=== PATIENT | female | born 1975 | race American Indian/Alaskan Native ===

== ENCOUNTER 2021-12-23 16:28 | Emergency (ER) | payer BC ==
[2021-12-23 17:02] VITALS: BP 151/78
[2021-12-23 17:22] LABS: Basophils % (Auto) 0.5 % (0.0-1.8); Eosinophils % (Auto) 0.6 % (0.0-4.3); Hematocrit 36.7 % (30.3-42.9); Hemoglobin 11.6 gm/dl (10.1-14.3); Lymphocytes # (Auto) 2.2 K/mm3 (1.2-5.4); Lymphocytes % (Auto) 41.4 % (13.4-35.0); Mean Corpuscular HGB Conc 32 % (30-34); Mean Corpuscular Volume 82 fl (79-97); Monocytes # (Auto) 0.6 K/mm3 (0.0-0.8); Monocytes % (Auto) 11.4 % (0.0-7.3); Platelet Count 225 K/mm3 (140-440); Red Blood Count 4.48 M/mm3 (3.65-5.03); Red Cell Distribution Width 16.2 % (13.2-15.2)
[2021-12-23 17:55] LABS: Blood Urea Nitrogen 5 mg/dL (7-17); Calcium 8.9 mg/dL (8.4-10.2); Hemolysis Index 9
[2021-12-23 18:04] LABS: BUN/Creatinine Ratio 7
--- NOTE | 2021-12-23 18:06 | XRay Report ---
LEFT TIBIA-FIBULA 2 VIEW(S) INDICATION / CLINICAL INFORMATION: fall pain swelling LLE COMPARISON: None available. FINDINGS: BONES / JOINT(S): No acute fracture or subluxation. No significant arthritis. SOFT TISSUES: On the proximal lateral view, there is a thin linear 6 mm density projecting within the pretibial subcutaneous fat. There is anterior soft tissue swelling. ADDITIONAL FINDINGS: None. IMPRESSION: 1. No acute skeletal abnormality. 2. Thin linear density projecting within the edematous prepatellar soft tissues in the proximal forel eg on the lateral view concerning for foreign body. Signer Name: Pablo Nicole MD Signed: 12/23/2021 6:01 PM Workstation Name: [email or web address]
[2021-12-23] MEDS ORDERED: DOXYCYCLINE 100 MG CAP PO ONE (22:22)
[2021-12-23] MEDS ORDERED: IBUPROFEN 600 MG TAB PO ONE (22:22)
[2021-12-23] MEDS ORDERED: ONDANSETRON 4 MG ODT TAB PO ONE (22:22)
--- NOTE | 2021-12-23 22:27 | Emergency Department Report ---
ED Lower Extremity HPI - General Chief Complaint: Fall Stated Complaint: INFECTION Source: patient Mode of arrival: Ambulatory Limitations: No Limitations - History of Present Illness Initial Comments: Patient is a 45-year-old -[place] female with a history of morbid obes ity, hypertension, hyperlipidemia, asthma who presents to the ED with complaint of persistent left lower leg pain with mild swelling and erythematous maculopapular rash and suffering a fall injury at home 3 days ago. Patient states that she slipped in the bathtub and fell 3 days ago and hit her head and also scratched her left lower leg. Patient states that she was initially evaluated at another hospital emergency, [facility] and was subsequently discharged home. Patient states that in the last 2 days left lower leg pain and swelling has been persistent with worsening erythematous rash around the left lower leg abrasion. Patient states that she also tested positive for COVID-19 viral infection 3 days ago. Patient denies fever, chills, nausea and vomiting, dizziness, syncope, seizures, neck pain, chest pain, shortness of breath, low back pain, numbness and tingling or weakness of lower extremities bilaterally. MD Complaint: leg injury (left lower leg abrasions, swelling and mild erythematous rash) -: days(s) (3) Injury: Leg: Left (left lower leg abrasion and mild erythema) Type of Injury: other (abrasion) Severity: moderate Severity scale (0 -10): 6 Improves With: nothing Worsens With: weight bearing, movement, palpation Context: fall Associated Symptoms: swelling, able to partially bear weight. denies: snap/pop sensation, numbness, tingling, unable to bear weight, ambulatory - Related Data Previous Rx's Medication Instructions Recorded Last Taken Type Cyclobenzaprine [Flexeril] 10 mg PO TID PRN #14 tablet 10/13/13 Unknown Rx HYDROcodone/APAP 5-325 [Council 1 each PO Q6HR PRN #14 tablet 10/13/13 Unknown Rx 5-325 mg TAB] Ibuprofen [Motrin] 800 mg PO Q8H PRN #20 tablet 10/13/13 Unknown Rx Doxycycline Monohydrate 100 mg PO Q12H #20 cap 12/23/21 Unknown Rx [Doxycycline Monohydrate CAP] Ibuprofen [Motrin] 800 mg PO Q8HR PRN #30 tablet 12/23/21 Unknown Rx Allergies Allergy/AdvReac Type Severity Reaction Status Date / Time Penicillins Allergy Rash Verified 12/23/21 17:02 Sulfa (Sulfonamide Allergy Rash Verified 12/23/21 17:02 Antibiotics) ED Review of Systems ROS: Stated complaint: INFECTION Other details as noted in HPI Constitutional: denies: chills, fever Eyes: denies: eye pain, eye discharge, vision change ENT: denies: ear pain, throat pain Respiratory: denies: cough, shortness of breath, wheezing Cardiovascular: denies: chest pain, palpitations Endocrine: no symptoms reported Gastrointestinal: denies: abdominal pain, nausea, diarrhea Genitourinary: denies: urgency, dysuria, discharge Musculoskeletal: arthralgia (left lower leg abrasion and mild erythematous rash). denies: back pain, joint swelling Skin: rash (Mild erythematous rash on the left lower leg with mild swelling). denies: lesions Neurological: denies: headache, weakness, paresthesias Psychiatric: denies: anxiety, depression Hematological/Lymphatic: denies: easy bleeding, easy bruising ED Past Medical Hx - Past Medical History Hx Asthma: Yes - Social History Smoking Status: Never Smoker Substance Use Type: None - Medications Home Medications: Home Medications Medication Instructions Recorded Confirmed Last Taken Type Cyclobenzaprine [Flexeril] 10 mg PO TID PRN #14 tablet 10/13/13 Unknown Rx HYDROcodone/APAP 5-325 [Council 1 each PO Q6HR PRN #14 tablet 10/13/13 Unknown Rx 5-325 mg TAB] Ibuprofen [Motrin] 800 mg PO Q8H PRN #20 tablet 10/13/13 Unknown Rx Doxycycline Monohydrate 100 mg PO Q12H #20 cap 12/23/21 Unknown Rx [Doxycycline Monohydrate CAP] Ibuprofen [Motrin] 800 mg PO Q8HR PRN #30 tablet 12/23/21 Unknown Rx ED Physical Exam - General Limitations: No Limitations General appearance: alert, in no apparent distress - Head Head exam: Present: atraumatic, normocephalic, normal inspection - Eye Eye exam: Present: normal appearance, PERRL, EOMI Pupils: Present: normal accommodation - ENT ENT exam: Present: normal exam, normal orophraynx, mucous membranes moist, TM's normal bilaterally, normal external ear exam - Neck Neck exam: Present: normal inspection, full ROM. Absent: tenderness - Respiratory Respiratory exam: Present: normal lung sounds bilaterally. Absent: respiratory distress, wheezes, rales, stridor, chest wall tenderness, accessory muscle use, prolonged expiratory - Cardiovascular Cardiovascular Exam: Present: regular rate, normal rhythm, normal heart sounds. Absent: systolic murmur, diastolic murmur, rubs, gallop - GI/Abdominal GI/Abdominal exam: Present: soft, normal bowel sounds. Absent: tenderness, gu arding, rebound, hyperactive bowel sounds, hypoactive bowel sounds, organomegaly - Extremities Exam Extremities exam: Present: normal inspection, full ROM, tenderness (Palpable left lower leg tenderness with mild swelling and mild erythematous maculopapular rashes), normal capillary refill. Absent: pedal edema, joint swelling, calf tenderness - Back Exam Back exam: Present: normal inspection, full ROM. Absent: tenderness, CVA tenderness (R), CVA tenderness (L), muscle spasm, paraspinal tenderness, vertebral tenderness - Neurological Exam Neurological exam: Present: alert, oriented X3, CN II-XII intact, normal gait, reflexes normal - Psychiatric Psychiatric exam: Present: normal affect, normal mood - Skin Skin exam: Present: warm, dry, intact, rash (Mild erythematous maculopapular rash on left lower leg with mild swelling and localized tenderness), erythema. Absent: normal color ED Course Vital Signs 12/23/21 16:50 Temperature 98 F Pulse Rate 79 Respiratory 18 Rate Blood Pressure 151/78 [Left] O2 Sat by Pulse 99 Oximetry ED Lower Extremity MDM - Lab Data Result diagrams: 12/23/21 17:10 12/23/21 17:10 - Medical Decision Making This is a 45-year-old -[place] female with a history of morbid obesity, hypertension, hyperlipidemia, asthma who presents to the ED with complaint of persistent left lower leg pain with mild swelling and erythematous maculopapular rash and suffering a fall injury at home 3 days ago. Patient states that she slipped in the bathtub and fell 3 days ago and hit her head and also scratched her left lower leg. Patient states that she was initially evaluated at another hospital emergency, [facility] and was subsequently discharged home. Patient states that in the last 2 days left lower leg pain and swelling has been persistent with worsening erythematous rash around the left lower leg abrasion. Patient states that she also tested positive for COVID-19 viral infection 3 days ago. In the ED, patient is alert and oriented x3 and is not in any distress. Lab test results were reviewed and are all nonactionable. Patient was treated in the ED initially with oral antibiotics and pain medication and was discharged home on antibiotics and advised to follow-up with her primary care physician in 7 to 10 days for reevaluation or return to the ED immediately if symptoms get worse. - Differential Diagnosis Cellulitis; abrasion; leg contusion; Critical care attestation.: If time is entered above; I have spent that time in minutes in the direct care of this critically ill patient, excluding procedure time. ED Disposition Clinical Impression: Cellulitis of left lower extremity without foot, Contusion of left lower leg, initial encounter Abrasion of left lower extremity Qualifiers: Encounter type: initial encounter Qualified Code(s): S80.812A - Abrasion, left lower leg, initial encounter Disposition: HOME / SELF CARE / HOMELESS Is pt being admited?: No Does the pt Need Aspirin: No Condition: Stable Instructions: Contusion, [id number], Cellulitis, Adult, [id number], Abrasion, [id number] Additional Instructions: All lab test results were reviewed and are all nonactionable. Therefore take medications with food, drink plenty of fluids and follow-up with your primary care physician in 7 to 10 days for reevaluation. Return to the ED immediately if symptoms get worse. Prescriptions: Doxycycline Monohydrate [Doxycycline Monohydrate CAP] 100 mg PO Q12H #20 cap Ibuprofen [Motrin] 800 mg PO Q8HR PRN #30 tablet PRN Reason: Pain , Severe (7-10) Referrals: PHIL KENNEY MD [Primary Care Provider] - 3-5 Days Forms: Work/School Release Form(ED) Time of Disposition: 22:29 Print Language: INDONESIAN
== END 2021-12-23 22:58 | disposition home or self-care (01) ==
LOC: ED 16:28
DX: S80.12XA Contusion of left lower leg, initial encounter (principal); U07.1 COVID-19; L03.116 Cellulitis of left lower limb; Z88.0 Allergy status to penicillin; Z88.2 Allergy status to sulfonamides; J45.909 Unspecified asthma, uncomplicated; X58.XXXA Exposure to other specified factors, initial encounter; Y93.89 Activity, other specified; Y92.89 Other specified places as the place of occurrence of the external cause; Y99.8 Other external cause status
CPT/HCPCS: 36415; 80048; 85025; 99283; J3490; Q0162